=== PATIENT | female | born 1980 ===

== ENCOUNTER → 2018-07-21 22:37 | Outpatient (REF) | payer OTHER, SELFPAY ==
[2018-07-21 22:59] LABS: Add Manual Diff / Slide Review NO; Basophils Percent Auto 0.9 % (0-2); Eosinophils Percent Auto 2.3 % (2-4); Hematocrit 40.5 % (36-46); Hemoglobin 13.9 g/dL (12.0-16.0); Lymphocytes Percent Auto 30.5 % (25-40); Mean Corpuscular HGB Conc 34.3 % (30-36); Mean Corpuscular Hemoglobin 33.1 PG (26-34); Mean Corpuscular Volume 96.5 fL (80-100); Neutrophils Absolute Auto 3900 /uL (3000-5900); Neutrophils Percent Auto 56.3 % (50-75); Platelet Count 258 X10^3/uL (150-400); Red Blood Cell Count 4.19 X10^6/uL (4.0-5.2); Red Cell Distribution Width 12.4 % (11.6-14.8); White Blood Cell Count 6.9 X10^3/uL (4.5-11.0)
[2018-07-22 02:10] LABS: Thyroid Stimulating Hormone 0.95 uIU/mL (0.47-4.68)
[2018-07-22 02:12] LABS: Alanine Aminotransferase 34 IU/L (9-52); Albumin 4.9 g/dL (3.5-5.0); Albumin Globulin Ratio 1.6 (1.0-2.8); Alkaline Phosphatase 42 U/L (38-126); Aspartate Aminotransferase 28 IU/L (14-36); BUN Creatinine Ratio 26.7 (6-22); Bilirubin Total 0.5 mg/dL (0.2-1.3); Blood Urea Nitrogen 16 mg/dL (7-17); Calcium 9.3 mg/dL (8.4-10.2); Carbon Dioxide 24 mmol/L (22-32); Chloride 100 mmol/L (98-107); Estimated Glomerular Filt Rate > 60.0 mL/min (>60); Globulin 3.1 g/dL (1.7-4.1); Glucose 76 mg/dL (70-100); HEMOLYSIS 22 (0-50); Potassium 4.8 mmol/L (3.4-5.1); Sodium 141 mmol/L (137-145)
[2018-07-22 02:29] LABS: Follicle Stimulating Hormone 2.68 mIU/mL
[2018-07-23 14:57] LABS: Dehydroepiandrosterone Sulfate 671 mcg/dL (23-266)
[2018-07-23 16:12] LABS: Estradiol 78 pg/mL
[2018-07-23 16:39] LABS: Progesterone 7.7 ng/mL
== END ==
LOC: LAB 22:37
PROVIDERS: Visit Provider Naturopath
DX: E03.9 Hypothyroidism, unspecified (principal); R61 Generalized hyperhidrosis; Z00.00 Encounter for general adult medical examination without abnormal findings; F41.1 Generalized anxiety disorder
CPT/HCPCS: 36415; 80053; 82627; 82670; 83001; 84144; 84443; 85025

== ENCOUNTER → 2018-09-08 20:47 | Outpatient (REF) | payer OTHER, SELFPAY ==
[2018-09-08 21:57] LABS: Thyroid Stimulating Hormone 1.56 uIU/mL (0.47-4.68)
[2018-09-08 22:46] LABS: Follicle Stimulating Hormone 3.67 mIU/mL; Luteinizing Hormone 3.34 mIU/mL
[2018-09-11 17:05] LABS: Dehydroepiandrosterone Sulfate 488 mcg/dL (23-266)
== END ==
LOC: LAB 20:47
PROVIDERS: Visit Provider Naturopath
DX: E03.9 Hypothyroidism, unspecified (principal); F41.9 Anxiety disorder, unspecified
CPT/HCPCS: 36415; 82627; 83001; 83002; 84443